=== PATIENT | male | born 1990 | race Caucasian/White ===

== ENCOUNTER 2017-10-24 21:33 | Emergency (ER) | payer MEDICAID ==
[2017-10-24] MEDS ORDERED: KETOROLAC TROMETHAMINE 60 MG/2 ML SDV IM ONE (23:06)
--- NOTE | 2017-10-24 23:07 | ER Document Report ---
Addendum entered and electronically signed by DULCE MARTINS LCSWA 10/26/17 07: 48: Discharge - Discharge Clinical Impression: Substance abuse Condition: Stable Disposition: HOME, SELF-CARE Additional Instructions: NARCOTIC / OPIOD ABUSE: Narcotics and opiods are pain-relieving drugs that are often abused. They are addicting. Narcotics cause euphoria, but it often takes increasing amounts to "feel good" and avoid withdrawal symptoms. Overdose of narcotics causes small pupils, coma, and decreased breathing. It's a common cause of . Purity of street narcotics is unpredictable. Injection of narcotics is risky for abscesses, endocarditis (heart infection), pneumonia, and AIDS. Withdrawal from narcotics causes goose bumps, watery mouth, sweating, nasal congestion, muscle aches, abdominal cramps, vomiting, and diarrhea. There 's often restlessness and confusion. Treatment programs are available, but you must make the decision to quit. Medication (such as clonidine) can be prescribed to control the symptoms of withdrawal. AMPHETAMINE / METHAMPHETAMINE ABUSE: Amphetamines are addicting stimulants. Amphetamines overstimulate the nervous system and give a false feeling of power and mastery. These drugs may be obtained as prescription pills for weight loss, narcolepsy, or attention- deficit disorder. More often they're bought as an illegal street drug, methamphetamine (crank, crystal, speed). Using amphetamines repeatedly can lead to serious medical problems including malnutrition, severe depression, and paranoia. It can take increasing amounts to feel good. Eventually, there will be a "burn out." When you go off amphetamines there is a period of depression that may last for weeks or even months. High doses of amphetamines can cause seizures, confusion, hallucinations, delusions, high blood pressure, muscle damage, heart damage, or sudden . Many times these deadly complications occur even with "normal" doses. Injection of amphetamines is risky for developing abscesses, endocarditis ( heart infection), pneumonia, and AIDS. Withdrawal from amphetamines often causes anxiety, depression, and drug cravings. Some users become paranoid and psychotic. There may be cramps, nausea , and vomiting. Many treatment programs are available, but you must make the decision to quit. Medication can be prescribed to control the symptoms of amphetamine toxicity (beta blockers or benzodiazepines). Withdrawal symptoms may require tranquilizers. OVERDOSE / INGESTION: You have taken more medication than you should have. After your evaluation and care, it is felt that your overdose is not likely to be harmful or of any significant consequences to you and you are being discharged. In the future, you should be careful not to take more medications than what is prescribed for you. Although your overdose does not seem to be of any danger to you at this time, if you develop any unusual or unexpected symptoms after your discharge, you should return to the Emergency Department immediately for re-evaluation. FOLLOW-UP CARE: Please follow up with [facility] in 3-5 days for your continued substance abuse treatment. You have also been provided a resource list of substance abuse providers to include detox, outpatient and inpatient treatment options. If you experience worsening or a significant change in your symptoms , notify the physician immediately or return to the Emergency Department at any time for re-evaluation. Referrals: TIMOTHY COSBY NP [Primary Care Provider] - Follow up as needed [facility] [Outside] - Follow up in 3-5 days Original Note: ED General - General Mode of Arrival: Ambulatory Information source: Patient TRAVEL OUTSIDE OF THE [place] IN LAST 30 DAYS: No <JOANNA NEW - Last Filed: 10/24/17 22:59> <GARRISON VICENTE - Last Filed: 10/25/17 15:22> <DULCE MARTINS - Last Filed: 10/26/17 07:46> <JANE NULL - Last Filed: 10/26/17 08:15> - General Chief Complaint: Medication Refill Stated Complaint: PSYCH EVAL Time Seen by Provider: 10/24/17 22:23 Notes: Patient is a 27 year old male with a history of anxiety, depression, and bipolar disorder presents to the emergency department complaining of increased anxiety and left knee pain. Patient states he feels like his medications at home are not working stating he has been having severe anxiety lately. He states today he took one of his 's Xanax in attempt to alleviate his anxiety. Patient also states he would like a psych evaluation in the morning to better manage his nerves and to get evaluated for schizophrenia. Patient denies any suicidal or homicidal ideation. Patient also complained of pain in his left knee stating he had surgery and would like pain medication. Patients medications include Seroquel, Klonopin, Neurontin and Hydrocodone. (JOANNA NEW) - Related Data Allergies/Adverse Reactions: vancomycin Allergy (Verified 10/24/17 21:49) Past Medical History - General Information source: Patient - Social History Smoking Status: Current Every Day Smoker Frequency of alcohol use: Occasional Drug Abuse: None Patient has suicidal ideation: No Patient has homicidal ideation: No <JOANNA NEW - Last Filed: 10/24/17 22:59> - Social History Cigarette use (# per day): No Family History: Reviewed & Not Pertinent <GARRISON VICENTE - Last Filed: 10/25/17 15:22> Review of Systems - Review of Systems Constitutional: No symptoms reported EENT: No symptoms reported Cardiovascular: No symptoms reported Respiratory: No symptoms reported Gastrointestinal: No symptoms reported Genitourinary: No symptoms reported Male Genitourinary: No symptoms reported Musculoskeletal: See HPI Skin: No symptoms reported Hematologic/Lymphatic: No symptoms reported Neurological/Psychological: See HPI, Anxiety -: Yes All other systems reviewed and negative <SHAQJOANNA NATHAN - Last Filed: 10/24/17 22:59> Physical Exam <JOANNA NEW - Last Filed: 10/24/17 22:59> <GARRISON VICENTE - Last Filed: 10/25/17 15:22> <DULCE MARTINS - Last Filed: 10/26/17 07:46> <JANE NULL - Last Filed: 10/26/17 08:15> - Vital signs Vitals: Temp Pulse Resp BP Pulse Ox 97.7 F 85 16 122/72 99 10/24/17 22:01 10/24/17 22:01 10/24/17 22:01 10/24/17 22:01 10/24/17 22:01 - Notes Notes: GENERAL: Alert, interacts well. No acute distress. HEAD: Normocephalic, atraumatic. EYES: Pupils equal, round, and reactive to light. Extraocular movements intact. ENT: Oral mucosa moist, tongue midline. NECK: Full range of motion. Supple. Trachea midline. LUNGS: Clear to auscultation bilaterally, no wheezes, rales, or rhonchi. No respiratory distress. HEART: Regular rate and rhythm. No murmurs, gallops, or rubs. EXTREMITIES: Moves all 4 extremities spontaneously. Able to ambulate across the room without any difficulty. NEUROLOGICAL: Alert and oriented x3. Normal speech. PSYCH: Normal affect, normal mood. SKIN: Warm, dry, normal turgor. No rashes or lesions noted. (JOANNA NEW) Course <JOANNA NEW - Last Filed: 10/24/17 22:59> - Laboratory Result Diagrams: 10/24/17 23:20 10/24/17 23:20 <GARRISON VICENTE - Last Filed: 10/25/17 15:22> <DULCE MARTINS - Last Filed: 10/26/17 07:46> - Laboratory Result Diagrams: 10/24/17 23:20 10/24/17 23:20 <JANE NULL - Last Filed: 10/26/17 08:15> - Re-evaluation Re-evalutation: 10/26/17 08:14 Patient was evaluated this morning. Patient awake alert stating that at this time he feels much better and wishes to be discharged. Patient denies any homicidal suicidal ideation. Patient shows no signs of acute psychosis. Agree with psychiatric disposition to be discharged at this time. (JANE NULL) - Vital Signs Vital signs: Temp Pulse Resp BP Pulse Ox 98.1 F 88 20 129/88 H 99 10/26/17 06:19 10/26/17 06:19 10/25/17 10:00 10/26/17 06:19 10/26/17 06:19 - Laboratory Laboratory results interpreted by me: 10/24/17 10/25/17 23:20 08:00 Carbon Dioxide 32 H Ur Leukocyte Esterase LARGE H Salicylates < 1.0 L Acetaminophen < 10 L Discharge <JOANNA NEW - Last Filed: 10/24/17 22:59> <GARRISON VICENTE - Last Filed: 10/25/17 15:22> <DULCE MARTINS - Last Filed: 10/26/17 07:46> <JANE NLUL - Last Filed: 10/26/17 08:15> - Discharge Clinical Impression: Substance abuse Condition: Stable Disposition: HOME, SELF-CARE Additional Instructions: NARCOTIC / OPIOD ABUSE: Narcotics and opiods are pain-relieving drugs that are often abused. They are addicting. Narcotics cause euphoria, but it often takes increasing amounts to "feel good" and avoid withdrawal symptoms. Overdose of narcotics causes small pupils, coma, and decreased breathing. It's a common cause of . Purity of street narcotics is unpredictable. Injection of narcotics is risky for abscesses, endocarditis (heart infection), pneumonia, and AIDS. Withdrawal from narcotics causes goose bumps, watery mouth, sweating, nasal congestion, muscle aches, abdominal cramps, vomiting, and diarrhea. There 's often restlessness and confusion. Treatment programs are available, but you must make the decision to quit. Medication (such as clonidine) can be prescribed to control the symptoms of withdrawal. AMPHETAMINE / METHAMPHETAMINE ABUSE: Amphetamines are addicting stimulants. Amphetamines overstimulate the nervous system and give a false feeling of power and mastery. These drugs may be obtained as prescription pills for weight loss, narcolepsy, or attention- deficit disorder. More often they're bought as an illegal street drug, methamphetamine (crank, crystal, speed). Using amphetamines repeatedly can lead to serious medical problems including malnutrition, severe depression, and paranoia. It can take increasing amounts to feel good. Eventually, there will be a "burn out." When you go off amphetamines there is a period of depression that may last for weeks or even months. High doses of amphetamines can cause seizures, confusion, hallucinations, delusions, high blood pressure, muscle damage, heart damage, or sudden . Many times these deadly complications occur even with "normal" doses. Injection of amphetamines is risky for developing abscesses, endocarditis ( heart infection), pneumonia, and AIDS. Withdrawal from amphetamines often causes anxiety, depression, and drug cravings. Some users become paranoid and psychotic. There may be cramps, nausea , and vomiting. Many treatment programs are available, but you must make the decision to quit. Medication can be prescribed to control the symptoms of amphetamine toxicity (beta blockers or benzodiazepines). Withdrawal symptoms may require tranquilizers. OVERDOSE / INGESTION: You have taken more medication than you should have. After your evaluation and care, it is felt that your overdose is not likely to be harmful or of any significant consequences to you and you are being discharged. In the future, you should be careful not to take more medications than what is prescribed for you. Although your overdose does not seem to be of any danger to you at this time, if you develop any unusual or unexpected symptoms after your discharge, you should return to the Emergency Department immediately for re-evaluation. FOLLOW-UP CARE: Please follow up with [facility] in 3-5 days for your continued substance abuse treatment. You have also been provided a resource list of substance abuse providers to include detox, outpatient and inpatient treatment options. If you experience worsening or a significant change in your symptoms , notify the physician immediately or return to the Emergency Department at any time for re-evaluation. Referrals: [facility] [Outside] - Follow up in 3-5 days TIMOTHY COSBY, [employer] [Primary Care Provider] - Follow up as needed Scribe Documentation - Scribe Written by Tamiko:: Tamiko Edouard, 10/24/2017 23:09 acting as scribe for :: Long <JOANNA NEW - Last Filed: 10/24/17 22:59>
[2017-10-24 23:46] LABS: ABSOLUTE BASOPHILS # (AUTO) 0.1 10^3/uL (0.0-0.2); ABSOLUTE EOSINOPHILS # (AUTO) 0.1 10^3/uL (0.0-0.6); ABSOLUTE LYMPHOCYTES (AUTO) 3.2 10^3/uL (0.5-4.7); ABSOLUTE MONOCYTES (AUTO) 0.8 10^3/uL (0.1-1.4); ABSOLUTE NEUT (AUTO) 5.8 10^3/uL (1.7-8.2); BASOPHILS % (AUTO) 0.7 % (0-2); EOSINOPHILS % (AUTO) 0.7 % (0-6); HEMOGLOBIN 13.5 g/dL (13.5-17.0); LYMPHOCYTES % (AUTO) 32.1 % (13-45); MEAN CORPUSCULAR HEMOGLOBIN 30.4 pg (27.0-33.4); MEAN CORPUSCULAR HGB CONC 35.6 g/dL (32.0-36.0); MEAN CORPUSCULAR VOLUME 85 fl (80-97); MONOCYTES % (AUTO) 7.8 % (3-13); PLATELET COUNT 241 10^3/uL (150-450); RED BLOOD COUNT 4.44 10^6/uL (4.35-5.55); RED CELL DISTRIBUTION WIDTH 12.6 % (11.5-14.0); SEGMENTED NEUTROPHILS % (AUTO) 58.7 % (42-78); TOTAL CELLS COUNTED % (AUTO) 100 %; WHITE BLOOD COUNT 9.8 10^3/uL (4.0-10.5)
[2017-10-25 00:03] LABS: ALANINE AMINOTRANSFERASE 39 U/L (21-72); ALBUMIN 4.6 g/dL (3.5-5.0); ALKALINE PHOSPHATASE 48 U/L (38-126); ANION GAP 9 (5-19); ASPARTATE AMINO TRANSFERASE 33 U/L (17-59); BILIRUBIN,DIRECT 0.1 mg/dL (0.0-0.4); BILIRUBIN,TOTAL 0.6 mg/dL (0.2-1.3); BLOOD UREA NITROGEN 11 mg/dL (7-20); CALCIUM 9.8 mg/dL (8.4-10.2); CARBON DIOXIDE 32 mmol/L (22-30); CHLORIDE 102 mmol/L (98-107); GLUCOSE 97 mg/dL (75-110); POTASSIUM 3.7 mmol/L (3.6-5.0); SODIUM 142.7 mmol/L (137-145)
[2017-10-25 00:05] LABS: ACETAMINOPHEN < 10 ug/mL (10-30); ALCOHOL < 10 mg/dL (NONE DETECTED); SALICYLATE < 1.0 mg/dL (2.0-20.0)
--- NOTE | 2017-10-25 07:45 | EKG REPORT ---
SEVERITY:- NORMAL ECG - SINUS RHYTHM : Confirmed by: Atul Laguna MD 25-Oct-2017 07:44:16
--- NOTE | 2017-10-25 08:23 | PSYCHOLOGICAL NOTE ---
Psych Note - Psych Note Psych Note: Reason for consult: altered mental status Consent permissions: patient's Patient is a 27 year old male with a history of anxiety, depression, and bipolar disorder presents to the emergency department complaining of increased anxiety and left knee pain. Patient states he feels like his medications at home are not working stating he has been having severe anxiety lately. He states today he took one of his 's Xanax in attempt to alleviate his anxiety. Patient also states he would like a psych evaluation in the morning to better manage his nerves and to get evaluated for schizophrenia. Patient disclosed he was was taken to [facility] ED by his after he reportedly took too much of his prescribed medication. His told him that he overdosed and his response was, "I probably took too much." He repeatedly said he was not trying to commit suicide and his medications were not working. He also said "he didn't mean to," when asked why he took too much of his medication. Patient also admits to taking his 's Xanax. Patient denies any history of substance abuse or recreational drug use. He reports he never has been hospitalized for mental illness. Patient disclosed that he has a mental illness history that includes a diagnosis of; bipolar, severe anxiety, and depression. He currently admits to taking his prescriptions; mood stabilizer and medication for pain and anxiety. He has been seen at [facility] and uses the [facility] in [place] as his pharmacy. Patient is alert and orientated to person, place, time and circumstance. Mood appeared to be slightly irritable with a congruent affect. Patient denies suicidal or homicidal ideation and denies any use of substances. Patient originally refused to comply with a urine sample and became defensive when asked again but agreed. Patient appears to be under the influence as evidenced by his slurred speech and difficulty with balance while walking. Eye contact and concentration was poor. Conversational speech was slurred and slowed. Insight, judgment, impulse control are poor due to possible drug use. Patient appears to be seeking medications and denies wanting a psychiatric evaluation. 296.80 (F31.9) Unspecified Bipolar and Related Disorder per patient hx 311 (F32.9) Unspecified Depressive Disorder per patient hx 300.00 (F41.9) Unspecified Anxiety Disorder per patient hx Impression/plan:
[2017-10-25 09:21] LABS: CALCIUM OXALATE CRYSTALS,URINE RARE /HPF
[2017-10-25 09:28] LABS: APPEARANCE,URINE CLEAR; BILIRUBIN,URINE NEGATIVE (NEGATIVE); GLUCOSE, URINE NEGATIVE (NEGATIVE); KETONES,URINE NEGATIVE (NEGATIVE)
[2017-10-25 09:30] LABS: LEUKOCYTE ESTERASE,URINE LARGE (NEGATIVE); NITRITE,URINE NEGATIVE (NEGATIVE); PROTEIN,URINE NEGATIVE (NEGATIVE); URINE SPECIFIC GRAVITY 1.003; UROBILINOGEN,URINE NEGATIVE mg/dL (<2.0)
[2017-10-25 09:31] LABS: COLOR,URINE STRAW
[2017-10-25 09:36] LABS: URINE BARBITURATES SCREEN NEGATIVE; URINE BENZODIAZEPINES SCREEN UNCONFIRMED POSITIVE; URINE COCAINE SCREEN NEGATIVE; URINE MARIJUANA (THC) SCREEN NEGATIVE; URINE METHADONE SCREEN NEGATIVE; URINE PHENCYCLIDINE SCREEN NEGATIVE
[2017-10-25] MEDS ORDERED: HALOPERIDOL 5 MG TABLET PO ONE (16:57)
[2017-10-25] MEDS ORDERED: HALOPERIDOL 5 MG TABLET PO PRN (16:58)
[2017-10-25] MEDS ORDERED: BENZTROPINE MESYLATE 1 MG TABLET PO SCH (17:00)
[2017-10-25] MEDS ORDERED: NICOTINE 21 MG/24 HR PATCH.TD24 TD ONE (18:33)
[2017-10-25] MEDS ORDERED: BENZTROPINE MESYLATE 1 MG TABLET PO ONE (19:00)
--- NOTE | 2017-10-25 20:43 | ER Document Report ---
Doctor's Note Notes: 10/25/17 20:43 Rounds earlier today: Chart was reviewed and patient interviewed. Vital signs are all essentially normal. Lab studies were essentially normal. Patient appears to be medically stable for transfer or discharge. Patient is going to be kept here overnight to be reassessed in the morning by mental health. Marybel Romero MD
[2017-10-26 08:17] VITALS: BP 110/70
[2017-10-26] MEDS ORDERED: BENZTROPINE MESYLATE 1 MG TABLET PO SCH (18:00)
--- NOTE | 2017-10-30 08:11 | PSYCHOLOGICAL NOTE ---
Psych Note - Psych Note Psych Note: Reason for consult: Patient requested Consult requested: 0700 Evaluation: 0720 Patient is a 27 year old male with a history of anxiety, depression, and bipolar disorder presents to the emergency department complaining of increased anxiety and left knee pain. Patient states he feels like his medications at home are not working stating he has been having severe anxiety lately. He states today he took one of his 's Xanax in attempt to alleviate his anxiety. Patient also states he would like a psych evaluation in the morning to better manage his nerves and to get evaluated for schizophrenia. Patient denies any suicidal or homicidal ideation. Patient disclosed he arrived to [facility] ED via his because, "they said I Yamini... probably took too much medicine." Patient denies trying to hurt himself and denies attempting to get high stating "it wasn't a suicide attempt...I was just really aggravated... I did not mean to." Patient denies having history of substance abuse. He continues state that he has never been inpatient for psychiatric treatment and has a history of bipolar and anxiety. He disclosed that he was prescribed Klonopin but it is not working. When asked why the patient felt he needed to be evaluated for schizophrenia he disclosed that he is been very angry and having hallucinations. When asked how often he says "it happens a lot." He continues state that he has nightmares every night. He disclosed that in June 2017 his 3-month-old baby boy . This occurred in [place]. Patient appears to be under the influence currently, to include slurred speech and unsteady gait. Patient denies suicidal and homicidal ideation but admits to taking too much medications. Cognitive functioning is currently impaired to include attention, concentration, insight, judgment, and impulse control. Eye contact was poor. Further investigation into patient's history indicates patient has convictions and correction time for methamphetamine manufacturing, distribution and possession. The investigation into the patient's 3-month-old baby is currently ongoing in [place]. The patient and his family to include 7-year-old daughter and 4- year-old son moved to [place] in August. Behavioral health team did speak with the patient's who disclosed both she and the patient had a substance abuse issue however moved to [place] to "get away for the meth." She reported that she and her have been clean since July. Patient's disclosed she has concerns the patient may have schizophrenia because he was so out of control that she slipped him her "Xanax in his frappe." Toxicology reports indicate patient probable current methamphetamine use. Polysubstance abuse Impression\\plan: Patient is recommended to continue under IVC. Patient is presenting under the influence which impairs cognitive abilities making insight , judgment, and impulse control poor. Upon sobriety patient will be reevaluated. Clinician contacted [facility] child protective services to make a report. Dr. Page was consulted and the care of this patient; attending physician is in agreement with recommendations and disposition.
--- NOTE | 2017-10-30 08:16 | PSYCHOLOGICAL NOTE ---
<DULCE MARTINS - Last Filed: 10/30/17 08:11> Psych Note - Psych Note Psych Note: Reason for consult: Patient requested Patient is a 27 year old male with a history of anxiety, depression, and bipolar disorder presents to the emergency department complaining of increased anxiety and left knee pain. Patient states he feels like his medications at home are not working stating he has been having severe anxiety lately. He states today he took one of his 's Xanax in attempt to alleviate his anxiety. Patient also states he would like a psych evaluation in the morning to better manage his nerves and to get evaluated for schizophrenia. Patient denies any suicidal or homicidal ideation. Checking conducted with patient Patient no longer under the influence. Patient is alert and orientated to person, place, time and circumstance. Mood is euthymic with congruent affect as evidenced by openly engaging with clinician. Patient denies suicidal and homicidal ideation. Delusions are absent and behaviors congruent with intact reality based presentation i.e. organized, linear, rational thinking. Intellectual abilities appear to be within the average range. Eye contact was well-maintained. Conversational speech was within normal rate, tone and prosody. Attention and concentration were good. Insight, judgment, impulse control is historically poor due to substance abuse. Polysubstance abuse Impression\\plan: Patient is recommended for rescind of IVC and is considered cleared from acute psychiatric services. Patient no longer meets IVC criteria per [place] GS 122C; patient is no longer under the influence and continues denies suicidal and homicidal ideation. Patient is recommended for substance abuse treatment and was provided local resource list of treatment options. Dr. Page was consulted and the care of this patient; attending physician is in agreement with recommendations and disposition. <KIARA PAGE - Last Filed: 10/31/17 11:07> Psych Note - Psych Note Psych Note: Met with Patient and his . Patient reported he brought the bottles of his medications with him to the hospital. Verified his medications, however, amongst his medication bottles was a bottle that did not belong to him. The prescription was for Clindomyacin and Patient reported it was his father's, who lives in [place].Patient reported he was was taking his father's antibiotics for a toothache. When advised he should not do that, Patient's stated, "oh, he meant to grab my bottle of antibiotics." I advised he should not be taking her medication either. Neither the Patient nor his could articulate the reason for having his father's antibiotics when his father lives in [place] and he lives in [place]. Patient admitted to smoking marijuana weekly and using methamphetamine the previously night. Patient denied using alcohol or the use of cocaine. Patient denied a history of suicidal behavior or inpatient psychiatric hospitalization, but continued to report a history of bipolar disorder or schizophrenia. However , it seems more likely the Patient's chronic use of methamphetamine and marijuana, and abuse of benzodiazepines gave the appearance of a mental health disorder especially given the information that Patient does not have symptoms in the absence of being under the influence of illegal substances.
== END 2017-10-26 08:16 | disposition home or self-care (01) ==
LOC: ER 21:33
DX: F19.10 Other psychoactive substance abuse, uncomplicated (principal); F41.9 Anxiety disorder, unspecified; F32.9 Major depressive disorder, single episode, unspecified; M25.562 Pain in left knee; F17.200 Nicotine dependence, unspecified, uncomplicated
CPT/HCPCS: 93005; 99285; 36415; 80307 ×4; 85025; 80053; 81001; 93010; J3490 ×3

== ENCOUNTER 2017-11-22 10:52 | Emergency (ER) | payer MEDICAID, OTHER ==
[2017-11-22 10:57] VITALS: BP 119/60
--- NOTE | 2017-11-22 12:16 | ER Document Report ---
ED Oral Problem - General Chief Complaint: Toothache Stated Complaint: EAR/TOOTH PAIN Time Seen by Provider: 11/22/17 11:08 Mode of Arrival: Ambulatory Information source: Patient TRAVEL OUTSIDE OF THE [place] IN LAST 30 DAYS: No - HPI Patient complains to provider of: Toothache Notes: Patient is here with complaints of right lower dental pain and right ear pain. Spent present for the last few days. No fevers. No difficulty breathing or swallowing. No nausea, vomiting, diarrhea. No rash. No headache. No blurred or loss vision. No abdominal pain. Pain is worse with chewing, nothing makes it better. He denies any other complaints. - Related Data Allergies/Adverse Reactions: vancomycin Allergy (Verified 10/24/17 21:49) Past Medical History - Social History Smoking Status: Current Every Day Smoker Chew tobacco use (# tins/day): No Frequency of alcohol use: None Drug Abuse: None Family History: Reviewed & Not Pertinent Patient has suicidal ideation: No Patient has homicidal ideation: No Pulmonary Medical History: Reports: Hx Pneumonia Renal/ Medical History: Denies: Hx Peritoneal Dialysis Past Surgical History: Reports: Hx Orthopedic Surgery - LLE Review of Systems - Review of Systems -: Yes All other systems reviewed and negative Physical Exam - Vital signs Vitals: Temp Pulse Resp BP Pulse Ox 97.5 F 84 15 119/60 99 11/22/17 10:56 11/22/17 10:56 11/22/17 10:56 11/22/17 10:56 11/22/17 10:56 - Notes Notes: GENERAL: alert, cooperative, nontoxic, no distress. HEAD: normocephalic, atraumatic EYES: conjunctiva pink without discharge, no external redness or swelling. EARS: no external swelling, no external redness. Canals clear. No sign of mastoiditis. TMs are pearly trammell with normal land olson. No perforation, no redness. NOSE: atraumatic, no external swelling MOUTH/THROAT: mucous membranes moist and pink. Widespread dental decay. Patient has a large cavity to the right lower either second or third molar. There is no gum swelling or abscess. No sublingual swelling or induration. No trismus or drooling. NECK: soft, supple, full range of motion, no meningismus. CHEST: no distress, lungs clear and equal throughout. No wheezing, rales, rhonchi. CARDIAC: regular rate and rhythm, no murmur, normal capillary refill, normal pulses. BACK: full range of motion, no CVA tenderness. EXTREMITIES: full range of motion of all extremities. No redness, no swelling. NEURO: alert and oriented 3, no focal deficits, full range of motion of all extremities. PYSCH: appropriate mood, affect. Patient is cooperative. SKIN: pink, warm, dry, no rash. Course - Re-evaluation Re-evalutation: 11/22/17 12:14 Patient is nontoxic appearing with stable vitals. Is here with complaints of dental pain. He has a large cavity to the right lower molar. There is no abscess. There is no sublingual swelling or induration and no sign of Osmany's angina. Is in absolutely no distress. Patient will be discharged home with prescription for Pen-Vee K and Voltaren. Follow-up with a dentist at the next available appointment. Follow-up sooner for worsening pain, fever, swelling, difficulty breathing or swallowing, or for any further concerns. The patient's emergency department workup and current diagnosis were explained to the patient and or family. Follow-up instructions were provided. Medications if prescribed were discussed. Instructions for when to return to the emergency department including specific worrisome symptoms were discussed with the patient and/or family. - Vital Signs Vital signs: Temp Pulse Resp BP Pulse Ox 97.5 F 84 15 119/60 99 11/22/17 10:56 11/22/17 10:56 11/22/17 10:56 11/22/17 10:56 11/22/17 10:56 Discharge - Discharge Clinical Impression: Pain due to dental caries Condition: Stable Disposition: HOME, SELF-CARE Instructions: Caring [facility], Penicillin V K ([facility]), Toothache ([facility]), Dentist Additional Instructions: Take medications as prescribed. Drink plenty fluids. Follow-up with a dentist at the next available appointment. Follow-up sooner for worsening pain, fever, swelling, difficulty breathing or swallowing, or for any further concerns. Prescriptions: Diclofenac Sodium [Voltaren 50 Mg Tablet.] 50 mg PO BID #20 tablet. Penicillin V Potassium [Penicillin Vk 500 mg Tablet] 500 mg PO BID #20 tablet Forms: Smoking Cessation Education Referrals: TIMOTHY COSBY NP [Primary Care Provider] - Follow up as needed [facility] [Provider Group] - Follow up as needed
== END 2017-11-22 12:20 | disposition home or self-care (01) ==
LOC: ER 10:52
DX: K02.9 Dental caries, unspecified (principal); K08.89 Other specified disorders of teeth and supporting structures; H92.01 Otalgia, right ear; F17.200 Nicotine dependence, unspecified, uncomplicated
CPT/HCPCS: 99282

== ENCOUNTER 2018-01-12 02:48 | Emergency (ER) | payer MEDICAID ==
--- NOTE | 2018-01-12 04:48 | ER Document Report ---
ED General - General Chief Complaint: Toothache Stated Complaint: TOOTHACHE Time Seen by Provider: 01/12/18 04:47 Notes: Patient is a 27-year-old male without chronic medical problems who presents with several weeks of progressively worsening general dental pain and upper lip swelling. The patient has been taking clindamycin without significant improvement. Nothing seems to improve his pain. He states any attempt to eat or drinking worsens the pain. He has not seen a dentist regarding these issues. He denies any difficulty breathing or swallowing. No fever or constitutional symptoms. TRAVEL OUTSIDE OF THE [place] IN LAST 30 DAYS: No - Related Data Allergies/Adverse Reactions: vancomycin Allergy (Verified 01/12/18 04:40) Past Medical History - General Information source: Patient - Social History Smoking Status: Current Every Day Smoker Frequency of alcohol use: None Drug Abuse: None Lives with: Family Family History: Reviewed & Not Pertinent Patient has suicidal ideation: No Patient has homicidal ideation: No Pulmonary Medical History: Reports: Hx Pneumonia Renal/ Medical History: Denies: Hx Peritoneal Dialysis Past Surgical History: Reports: Hx Orthopedic Surgery - LLE Review of Systems - Review of Systems Notes: Constitutional: Negative for fever. HENT: Positive for facial pain and swelling. Positive for dental pain. Eyes: Negative for visual changes. Cardiovascular: Negative for chest pain. Respiratory: Negative for shortness of breath. Gastrointestinal: Negative for abdominal pain, vomiting or diarrhea. Genitourinary: Negative for dysuria. Musculoskeletal: Negative for back pain. Skin: Negative for rash. Neurological: Negative for headaches, weakness or numbness. 10 point ROS negative except as marked above and in HPI. Physical Exam - Vital signs Vitals: Temp Pulse Resp BP Pulse Ox 98.6 F 81 18 138/75 H 97 01/12/18 03:02 01/12/18 03:02 01/12/18 03:02 01/12/18 03:02 01/12/18 03:02 Interpretation: Normal Notes: PHYSICAL EXAMINATION: GENERAL: Well-appearing, well-nourished and in no acute distress. HEAD: Atraumatic, normocephalic. EYES: Pupils equal round and reactive to light, extraocular movements intact, sclera anicteric, conjunctiva are normal. ENT: nares patent, oropharynx clear without exudates. Diffusely poor dentition. The upper lip is mildly swollen. Airway is otherwise patent. No swelling to the floor of the mouth. Moist mucous membranes. NECK: Normal range of motion, supple without lymphadenopathy LUNGS: Breath sounds clear to auscultation bilaterally and equal. No wheezes rales or rhonchi. HEART: Regular rate and rhythm without murmurs ABDOMEN: Soft, nontender, normoactive bowel sounds. No guarding, no rebound. No masses appreciated. EXTREMITIES: Normal range of motion, no pitting or edema. No cyanosis. NEUROLOGICAL: No focal neurological deficits. Moves all extremities spontaneously and on command. PSYCH: Normal mood, normal affect. SKIN: Warm, Dry, normal turgor, no rashes or lesions noted. Course - Re-evaluation Re-evalutation: 01/12/18 05:08 Presentation is most consistent with likely an infected tooth. Airway is patent. Vitals within normal limits. Patient is able swallow without any difficulty. There is no significant facial swelling. No evidence of Osmany angina, apical abscess, or airway obstruction. Patient will be started on antibiotics. I've instructed to follow-up with dentistry as earliest ability for definitive management. At this time will discharge with return precautions and follow-up recommendations. Verbal discharge instructions given a the bedside and opportunity for questions given. Medication warnings reviewed. Patient is in agreement with this plan and has verbalized understanding of return precautions and the need for primary care follow-up in the next 24-72 hours. - Vital Signs Vital signs: Temp Pulse Resp BP Pulse Ox 98.6 F 81 18 138/75 H 97 01/12/18 03:02 01/12/18 03:02 01/12/18 03:02 01/12/18 03:02 01/12/18 03:02 Discharge - Discharge Clinical Impression: Chronic dental infection, Swollen upper lip, Pain, dental Condition: Good Disposition: HOME, SELF-CARE Additional Instructions: You have been seen for dental pain. It is very important that you follow-up with a dentist for definitive care. Please return if you develop fever greater than 101, worsening swelling to her face, vomiting, difficulty breathing or swallowing, or any other symptoms that are concerning to you. For pain you should take ibuprofen 600 mg every 6 hours as needed. Prescriptions: Amox Tr/Potassium Clavulanate [Augmentin 875-125 Tablet] 1 tab PO BID 10 Days tablet Referrals: TIMOTHY COSBY NP [Primary Care Provider] - Follow up as needed
[2018-01-12] MEDS ORDERED: AMOXICILLIN TR/POT CLAVULANATE 500-125 MG TAB PO ONE (05:05)
[2018-01-12] MEDS ORDERED: HYDROCODONE/ACETAMINOPHEN 5-325 MG (6 TAB/ER DISP) PO PRN (05:05)
[2018-01-12 05:39] VITALS: BP 141/84
== END 2018-01-12 05:38 | disposition home or self-care (01) ==
LOC: ER 02:48
DX: K04.7 Periapical abscess without sinus (principal); K08.89 Other specified disorders of teeth and supporting structures; R22.0 Localized swelling, mass and lump, head; F17.200 Nicotine dependence, unspecified, uncomplicated; Z88.1 Allergy status to other antibiotic agents
CPT/HCPCS: 99282; J3490